=== PATIENT | female | born 2000 | race American Indian/Alaskan Native ===

== ENCOUNTER 2019-01-14 01:01 | Emergency (ER) | payer OTHER ==
[2019-01-14 01:13] VITALS: BP 124/63
[2019-01-14] MEDS ORDERED: ZOFRAN IV ONE (01:52)
[2019-01-14] MEDS ORDERED: NACL 0.9% 1000 ML 1,000 ML IV ONE (01:52)
[2019-01-14 02:25] LABS: Basophils % (Auto) 0.6 % (0.0-1.8); Eosinophils # (Auto) 0.1 K/mm3 (0.0-0.4); Eosinophils % (Auto) 0.8 % (0.0-4.3); Hemoglobin 6.2 gm/dl (10.1-14.3); Lymphocytes # (Auto) 2.5 K/mm3 (1.2-5.4); Lymphocytes % (Auto) 32.6 % (13.4-35.0); Mean Corpuscular HGB Conc 33 % (30-34); Mean Corpuscular Volume 90 fl (79-97); Monocytes # (Auto) 0.7 K/mm3 (0.0-0.8); Monocytes % (Auto) 9.3 % (0.0-7.3); Red Blood Count 2.06 M/mm3 (3.65-5.03); Red Cell Distribution Width 12.7 % (13.2-15.2)
--- NOTE | 2019-01-14 02:28 | Emergency Department Report ---
ED Female HPI - General Chief complaint: Vaginal Bleeding Stated complaint: NAUSEAU PERIOD PAIN Time Seen by Provider: 01/14/19 01:47 Source: patient Mode of arrival: Ambulatory Limitations: No Limitations - History of Present Illness Initial comments: pt is a 18 y/o aaf with hx of AUB and anemia, who presents for vaginal bleeding x 2 weeks now with nausea and dizziness for last 2 days , there is associated cramping using 2-3 pads daily. this is a chronic problem for last 3 yrs. pt denies hx of fibroids or ovarian cyst. MD Complaint: vaginal bleeding Onset/Timin -: week(s) Location: suprapubic Radiation: suprapubic Severity: moderate Severity scale (0 -10): 4 Quality: cramping Consistency: constant Improves with: none Worsens with: none Are you Now?: No Last Menstrual Period: 11/28/18 EDC: 09/04/19 Associated Symptoms: vaginal bleeding - Related Data Sexually active: Yes : 0 Para: 0 A: 0 Previous Rx's Medication Instructions Recorded Last Taken Type Ferrous Sulfate [Ferrous Sulfate 324 mg PO TID #90 tablet. 01/14/19 Unknown Rx 324 MG] Sennosides Tab [Senokot] 8.6 mg PO BID #60 tablet 01/14/19 Unknown Rx medroxyPROGESTERone ACETATE 10 mg PO QDAY #10 tablet 01/14/19 Unknown Rx [Provera] Allergies Allergy/AdvReac Type Severity Reaction Status Date / Time No Known Allergies Allergy Unverified 01/14/19 01:14 ED Review of Systems ROS: Stated complaint: NAUSEAU PERIOD PAIN Other details as noted in HPI Constitutional: denies: chills, fever Eyes: denies: eye pain, eye discharge, vision change ENT: denies: ear pain, throat pain Respiratory: denies: cough, shortness of breath, wheezing Cardiovascular: denies: chest pain, palpitations Endocrine: no symptoms reported Gastrointestinal: abdominal pain (cramping ). denies: nausea, vomiting, diarrhea, constipation, hematemesis, melena, hematochezia Genitourinary: abnormal menses Musculoskeletal: denies: back pain, joint swelling, arthralgia Skin: denies: rash, lesions Neurological: as per HPI Psychiatric: denies: anxiety, depression Hematological/Lymphatic: denies: easy bleeding, easy bruising ED Past Medical Hx - Past Medical History Previous Medical History?: Yes Additional medical history: Anemia - Surgical History Past Surgical History?: No - Social History Smoking Status: Never Smoker Substance Use Type: None - Medications Home Medications: Home Medications Medication Instructions Recorded Confirmed Last Taken Type Ferrous Sulfate [Ferrous Sulfate 324 mg PO TID #90 tablet. 01/14/19 Unknown Rx 324 MG] Sennosides Tab [Senokot] 8.6 mg PO BID #60 tablet 01/14/19 Unknown Rx medroxyPROGESTERone ACETATE 10 mg PO QDAY #10 tablet 01/14/19 Unknown Rx [Provera] ED Physical Exam - General Limitations: No Limitations General appearance: alert, in no apparent distress - Head Head exam: Present: atraumatic, normocephalic - Eye Eye exam: Present: normal appearance, PERRL, EOMI Pupils: Present: normal accommodation - ENT ENT exam: Present: mucous membranes moist - Neck Neck exam: Present: normal inspection, tenderness, full ROM - Respiratory Respiratory exam: Present: normal lung sounds bilaterally. Absent: respiratory distress, wheezes, stridor, chest wall tenderness - Cardiovascular Cardiovascular Exam: Present: regular rate, normal rhythm, normal heart sounds. Absent: systolic murmur, diastolic murmur, rubs, gallop - GI/Abdominal GI/Abdominal exam: Present: soft, normal bowel sounds. Absent: distended, tenderness, guarding, rebound, rigid, bruit, hernia - Rectal Rectal exam: Present: deferred - Extremities Exam Extremities exam: Present: normal inspection, full ROM, normal capillary refill. Absent: tenderness, pedal edema, joint swelling, calf tenderness - Back Exam Back exam: Present: normal inspection, full ROM. Absent: tenderness, CVA tenderness (R), CVA tenderness (L), muscle spasm, paraspinal tenderness, vertebral tenderness, rash noted - Neurological Exam Neurological exam: Present: alert, oriented X3, CN II-XII intact, normal gait, reflexes normal. Absent: motor sensory deficit - Psychiatric Psychiatric exam: Present: normal affect, normal mood - Skin Skin exam: Present: warm, dry, intact, normal color. Absent: rash ED Course Vital Signs 01/14/19 01:04 Temperature 99.2 F Pulse Rate 113 H Respiratory 19 Rate Blood Pressure 124/63 O2 Sat by Pulse 100 Oximetry ED Medical Decision Making - Lab Data Result diagrams: 01/14/19 02:16 Lab Results 01/14/19 01/14/19 01/14/19 Range/Units 02:16 02:16 02:16 WBC 7.7 (4.5-11.0) K/mm3 RBC 2.06 L (3.65-5.03) M/mm3 Hgb 6.2 L (10.1-14.3) gm/dl MCV 90 (79-97) fl MCH 30 (28-32) pg MCHC 33 (30-34) % RDW 12.7 L (13.2-15.2) % Lymph % (Auto) 32.6 (13.4-35.0) % [place] % (Auto) 9.3 H (0.0-7.3) % Eos % (Auto) 0.8 (0.0-4.3) % Baso % (Auto) 0.6 (0.0-1.8) % Lymph # 2.5 (1.2-5.4) K/mm3 [place] # 0.7 (0.0-0.8) K/mm3 Eos # 0.1 (0.0-0.4) K/mm3 Baso # 0.0 (0.0-0.1) K/mm3 Seg Neutrophils % 56.7 (40.0-70.0) % Seg Neutrophils # 4.4 (1.8-7.7) K/mm3 Sodium 139 (137-145) mmol/L Potassium 3.5 L (3.6-5.0) mmol/L Chloride 104.0 (98-107) mmol/L Carbon Dioxide 23 (22-30) mmol/L Anion Gap 16 mmol/L BUN 10 (7-17) mg/dL Creatinine 0.5 L (0.7-1.2) mg/dL Estimated GFR > 60 ml/min BUN/Creatinine Ratio 20 % Glucose 99 (65-100) mg/dL Calcium 8.7 (8.4-10.2) mg/dL HCG, Qual Negative (Negative) - Medical Decision Making pt now advises that she want to signout AMA does not want blood transfusion, or admission, advises that she will follow up with OBGYN tomorrow, pt is currently a/o x 3 demonstrates decisions making capacity, I have given her the opportunity to ask and I have answer all questions to her satisfication include anemia of chronic ,disease, continuing her Fe therapy as prescribed by her doctor, and symptomatic anemia, pt verbalized understanding of same and still whishes to sign out AMA , pt depart ED at this time in undetermined condition, pt is currently a/o x 3 ambulatory with steady gait and with nad Critical care attestation.: If time is entered above; I have spent that time in minutes in the direct care of this critically ill patient, excluding procedure time. ED Disposition Clinical Impression: Abnormal uterine bleeding (AUB) Anemia Qualifiers: Anemia type: unspecified type Qualified Code(s): D64.9 - Anemia, unspecified Disposition: LEFT AGAINST MED ADVICE Is pt being admited?: No Does the pt Need Aspirin: No Condition: Stable Instructions: Anemia (ED), Iron Deficiency Anemia (ED) Prescriptions: Ferrous Sulfate [Ferrous Sulfate 324 MG] 324 mg PO TID #90 tablet. medroxyPROGESTERone ACETATE [Provera] 10 mg PO QDAY #10 tablet Sennosides Tab [Senokot] 8.6 mg PO BID #60 tablet Referrals: GÓMEZ RAMIREZ MD [Staff Physician] - 3-5 Days Forms: AMA Form Time of Disposition: 02:53
[2019-01-14] MEDS ORDERED: ZOFRAN ODT PO ONE (02:34)
[2019-01-14 02:45] LABS: BUN/Creatinine Ratio 20; Blood Urea Nitrogen 10 mg/dL (7-17); Calcium 8.7 mg/dL (8.4-10.2); Hemolysis Index 10
[2019-01-14 02:57] LABS: Hematocrit 18.5 % (30.3-42.9); Platelet Count 137 K/mm3 (140-440)
== END 2019-01-14 02:52 | disposition left against medical advice (07) ==
LOC: ED 01:01
DX: D64.9 Anemia, unspecified (principal); N93.8 Other specified abnormal uterine and vaginal bleeding
CPT/HCPCS: 36415; 80048; 84703; 85025; 99283; Q0162

== ENCOUNTER 2019-01-17 22:43 | Inpatient (IN) | payer OTHER ==
[2019-01-18 00:31] LABS: Basophils % (Auto) 0.3 % (0.0-1.8); Eosinophils % (Auto) 0.5 % (0.0-4.3); Hemoglobin 6.1 gm/dl (10.1-14.3); Lymphocytes # (Auto) 1.5 K/mm3 (1.2-5.4); Lymphocytes % (Auto) 19.7 % (13.4-35.0); Mean Corpuscular HGB Conc 33 % (30-34); Mean Corpuscular Volume 89 fl (79-97); Monocytes # (Auto) 0.5 K/mm3 (0.0-0.8); Monocytes % (Auto) 6.5 % (0.0-7.3); Platelet Count 433 K/mm3 (140-440); Red Blood Count 2.11 M/mm3 (3.65-5.03); Red Cell Distribution Width 13.7 % (13.2-15.2)
[2019-01-18 00:50] LABS: Alanine Aminotransferase 10 units/L (7-56); BUN/Creatinine Ratio 20; Blood Urea Nitrogen 10 mg/dL (7-17); Calcium 9.4 mg/dL (8.4-10.2); Hemolysis Index 10
[2019-01-18 01:31] LABS: Hematocrit 18.9 % (30.3-42.9)
[2019-01-18] MEDS ORDERED: NACL 0.9% 500 ML 500 ML IV ONE (02:16)
--- NOTE | 2019-01-18 02:19 | Emergency Department Report ---
HPI - General Chief Complaint: Dizziness Time Seen by Provider: 01/18/19 02:08 - HPI HPI: 18 year-old female presents to the emergency department with complaint of some dizziness, nausea and vomiting and some generalized weakness. The patient was here about 5 days ago with some similar complaints. She had a two-week history of some vaginal bleeding that was an atypical menstrual cycle for her. At that time she had some pelvic cramping but says that currently she denies any abdominal or pelvic pain and the bleeding has stopped. She was previously advised to receive a blood transfusion and admission but at that time she left AGAINST MEDICAL ADVICE as she was scared. The patient lives in [place] and has a flight home next week. She otherwise denies any past medical history. No previous history of any fibroids or ovarian cysts. ED Past Medical Hx - Past Medical History Previous Medical History?: Yes Additional medical history: Anemia - Surgical History Past Surgical History?: No - Social History Smoking Status: Never Smoker Substance Use Type: None - Medications Home Medications: Home Medications Medication Instructions Recorded Confirmed Last Taken Type Ferrous Sulfate [Ferrous Sulfate 324 mg PO TID #90 tablet. 01/14/19 Unknown Rx 324 MG] Sennosides Tab [Senokot] 8.6 mg PO BID #60 tablet 01/14/19 Unknown Rx medroxyPROGESTERone ACETATE 10 mg PO QDAY #10 tablet 01/14/19 Unknown Rx [Provera] ED Review of Systems ROS: Stated complaint: DIZZINESS Other details as noted in HPI Comment: All other systems reviewed and negative Constitutional: denies: chills, fever Eyes: denies: eye pain, vision change ENT: denies: ear pain, throat pain Respiratory: denies: cough, shortness of breath Cardiovascular: denies: chest pain, palpitations Gastrointestinal: nausea, vomiting Genitourinary: abnormal menses. denies: dysuria Musculoskeletal: denies: back pain, arthralgia Skin: denies: rash, lesions Neurological: denies: headache, weakness Physical Exam - Physical Exam Vital Signs: Vital Signs 01/17/19 22:47 Temperature 98.0 F Pulse Rate 122 H Respiratory 20 Rate Blood Pressure 117/70 O2 Sat by Pulse 100 Oximetry Physical Exam: GENERAL: The patient is well-developed well-nourished. HENT: Normocephalic. Atraumatic. Patient has moist mucous membranes. EYES: Extraocular motions are intact. Pupils equal reactive to light bilaterally. Pale conjunctiva. NECK: Supple. Trachea is midline. CHEST/LUNGS: Clear to auscultation. There is no respiratory distress noted. HEART/CARDIOVASCULAR: Regular. There is mild to moderate tachycardia. There is no murmur. ABDOMEN: Abdomen is soft, nontender. Patient has normal bowel sounds. There is no abdominal distention. SKIN: Skin is warm and dry. NEURO: The patient is awake, alert, and oriented. The patient is cooperative. The patient has no focal neurologic deficits. The patient has normal speech. MUSCULOSKELETAL: There is no tenderness or deformity. There is no evidence of acute injury. ED Course Vital Signs 01/17/19 22:47 Temperature 98.0 F Pulse Rate 122 H Respiratory 20 Rate Blood Pressure 117/70 O2 Sat by Pulse 100 Oximetry - Consultations Consultation #1: 01/18/19 04:46 I spoke with the [facility] on-call, Dr. Sarita Rodriguez, who has graciously agreed to admit the patient to her service for the blood transfusions and further evaluation of the dysfunctional uterine bleeding. She has allowed for emergent first replaced and has requested an ultrasound be done to evaluate the abnormal bleeding and anemia. ED Medical Decision Making - Lab Data Result diagrams: 01/18/19 00:10 01/18/19 00:10 - Radiology Data Radiology results: report reviewed ULTRASOUND PELVIS INDICATION / CLINICAL INFORMATION: dysfunctional uterine bleeding. TECHNIQUE: Transabdominal. Transvaginal Duplex Color Doppler used: Yes. COMPARISON: None available FINDINGS: UTERUS: Present. - Appearance (if present): The uterus has a normal size and appearance. The uterus is slightly retroflexed.. No focal uterine mass. - Size in cm (if present): 8.1 x 4.2 x 5.6 cm.. - Endometrial Complex (if present): No significant abnormality.. Thickness in cm (if measured) = 12 mm - Mass lesions: None. - Additional findings: None. RIGHT ADNEXA: No significant ovarian cyst or mass. Normal color Doppler blood flow. Normal antral follicles are seen throughout the right ovary. There is a 1.0 cm dominant follicle present. LEFT ADNEXA: No significant ovarian cyst or mass. Normal color Doppler blood flow. Normal antral follicles are seen within the left ovary. There is a dominant 1.3 cm follicle noted. FREE FLUID: Trace free fluid noted in the region of the right ovary.. ADDITIONAL FINDINGS: None. IMPRESSION: 1. Endometrial thickness measures 12 mm. This can be a normal thickness in a menstruating female. 2. The uterus and both ovaries have a normal sonographic appearance. 3. Trace free fluid in the right adnexa. - Medical Decision Making Patient presents to the emergency department with what appears to be some symptomatic anemia with a hemoglobin of 6.1. This time the patient has agreed for blood transfusion and admission. 2 units of packed red blood cells have bee n ordered for transfusion. An ultrasound was done that does not show any acute process or etiology of the patient's dysfunctional uterine bleeding. The patient has been accepted for admission to the [facility] service of Dr. Sarita Rodriguez. - Differential Diagnosis fibroids, malignancy, dysfunctional uterine bleeding, iron deficiency Critical Care Time: Yes Critical care time in (mins) excluding proc time.: 35 Critical care attestation.: If time is entered above; I have spent that time in minutes in the direct care of this critically ill patient, excluding procedure time. Critical care time was spent on this patient and during her initial evaluation, multiple re- evaluations, ordering an interpretation of labs and imaging, ordering of blood for transfusion and discussion with the [facility] service. Critical Care Time: 35 minutes ED Disposition Clinical Impression: Abnormal uterine bleeding (AUB), Anemia requiring transfusions Anemia Qualifiers: Anemia type: unspecified type Qualified Code(s): D64.9 - Anemia, unspecified Disposition: 09 OP ADMIT IP TO THIS HOSP Is pt being admited?: Yes Condition: Fair Time of Disposition: 03:33
--- NOTE | 2019-01-18 04:23 | Ultrasound Report ---
ULTRASOUND PELVIS INDICATION / CLINICAL INFORMATION: dysfunctional uterine bleeding. TECHNIQUE: Transabdominal. Transvaginal Duplex Color Doppler used: Yes. COMPARISON: None available FINDINGS: UTERUS: Present. - Appearance (if present): The uterus has a normal size and appearance. The uterus is slightly retrof lexed.. No focal uterine mass. - Size in cm (if present): 8.1 x 4.2 x 5.6 cm.. - Endometrial Complex (if present): No significant abnormality.. Thickness in cm (if measured) = 12 m m - Mass lesions: None. - Additional findings: None. RIGHT ADNEXA: No significant ovarian cyst or mass. Normal color Doppler blood flow. Normal antral fol licles are seen throughout the right ovary. There is a 1.0 cm dominant follicle present. LEFT ADNEXA: No significant ovarian cyst or mass. Normal color Doppler blood flow. Normal antral foll icles are seen within the left ovary. There is a dominant 1.3 cm follicle noted. FREE FLUID: Trace free fluid noted in the region of the right ovary.. ADDITIONAL FINDINGS: None. IMPRESSION: 1. Endometrial thickness measures 12 mm. This can be a normal thickness in a menstruating female. 2. The uterus and both ovaries have a normal sonographic appearance. 3. Trace free fluid in the right adnexa. Signer Name: Mara Hauser MD Signed: 01/18/2019 3:18 AM Workstation Name: [id number]
--- NOTE | 2019-01-18 04:49 | Ultrasound Report ---
Please see pelvic ultrasound report for combined report of both the transabdominal and transvaginal s tudies. Signer Name: Mara Hauser MD Signed: 01/18/2019 3:45 AM Workstation Name: [email or web address]
[2019-01-18] MEDS ORDERED: TYLENOL PO ONE (06:35)
[2019-01-18] MEDS ORDERED: BENADRYL PO NR (07:00)
[2019-01-18] MEDS ORDERED: NACL 0.9% 500 ML 500 ML IV NR (08:00)
--- NOTE | 2019-01-18 08:24 | History and Physical Report ---
History of Present Illness Date of examination: 01/18/19 Date of admission: 01/18/19 03:34 Chief complaint: lightheadedness, dizzy, nausea and vomiting History of present illness: This is a 18 yo G0 LMP 3 weeks ago. She presented to ER several days ago with similar complaints. She states that she has been bleeding for 2 weeks. She declined [facility] offer of admission for blood transfusion. She reports dizziness, lightheadedness and n/v. Past History Past Medical History: no pertinent history Past Surgical History: no surgical history Family/Genetic History: none Social history: single. denies: smoking, alcohol abuse, prescription drug abuse Medications and Allergies Allergies Allergy/AdvReac Type Severity Reaction Status Date / Time No Known Allergies Allergy Unverified 01/14/19 01:14 Home Medications Medication Instructions Recorded Confirmed Last Taken Type Ferrous Sulfate [Ferrous Sulfate 324 mg PO TID #90 tablet. 01/14/19 01/18/19 01/17/19 18:00 Rx 324 MG] Sennosides Tab [Senokot] 8.6 mg PO BID #60 tablet 01/14/19 01/18/19 01/17/19 13:00 Rx medroxyPROGESTERone ACETATE 10 mg PO QDAY #10 tablet 01/14/19 01/18/19 01/17/19 18:00 Rx [Provera] Active Meds: Active Medications Diphenhydramine HCl (Benadryl) 50 mg PO ONCE NR Stop: 01/18/19 23:45 Last Admin: 01/18/19 07:26 Dose: 50 mg Documented by: Sodium Chloride (Nacl 0.9% 500 Ml) 500 mls @ 0 mls/hr IV ONCE NR Stop: 01/18/19 10:00 Review of Systems All systems: negative Gastrointestinal: nausea, vomiting Neurological: weakness - Vital Signs Vital signs: Vital Signs Temp Pulse Resp BP Pulse Ox 98.0 F 122 H 20 117/70 100 01/17/19 22:47 01/17/19 22:47 01/17/19 22:47 01/17/19 22:47 01/17/19 22:47 Temp Pulse Resp BP Pulse Ox 99.3 F 110 H 18 108/57 100 01/18/19 08:16 01/18/19 08:16 01/18/19 08:16 01/18/19 08:16 01/18/19 08:16 - Physical Exam Breasts: Positive: normal Cardiovascular: Regular rate, Normal S1 Lungs: Positive: Clear to auscultation, Normal air movement Abdomen: Positive: normal appearance, soft, normal bowel sounds. Negative: distention, tenderness, guarding Genitourinary (Female): Positive: normal external genitalia, normal perenium Vagina: Positive: normal moisture Uterus: Positive: normal size Anus/Rectum: Positive: normal perianal skin Extremities: Positive: normal Deep Tendon Reflex Grade: Normal +2 Results Result Diagrams: 01/18/19 00:10 01/18/19 00:10 Abnormal lab results 01/18/19 01/18/19 01/18/19 Range/Units 00:10 00:10 03:00 RBC 2.11 L (3.65-5.03) M/mm3 Hgb 6.1 L (10.1-14.3) gm/dl Hct 18.9 L* (30.3-42.9) % Seg Neutrophils % 73.0 H (40.0-70.0) % Chloride 107.8 H (98-107) mmol/L Carbon Dioxide 21 L (22-30) mmol/L Creatinine 0.5 L (0.7-1.2) mg/dL Lipase 11 L (13-60) units/L Crossmatch See Detail All other labs normal. Assessment and Plan A/P Dysfunctional uterine bleeding transfuse 2 U prbc check CBC 4 hr post transfusion pad count consider depoprovera vs provera for bleeding. US normal trace of fluid in [place] sac on right ovary close monitor of vs consider d/c home today or tomorrow after transfusion
[2019-01-18 22:01] LABS: Basophils % (Auto) 0.2 % (0.0-1.8); Eosinophils % (Auto) 0.5 % (0.0-4.3); Hematocrit 27.8 % (30.3-42.9); Hemoglobin 9.4 gm/dl (10.1-14.3); Lymphocytes # (Auto) 0.6 K/mm3 (1.2-5.4); Lymphocytes % (Auto) 7.1 % (13.4-35.0); Mean Corpuscular HGB Conc 34 % (30-34); Mean Corpuscular Volume 88 fl (79-97); Monocytes # (Auto) 0.5 K/mm3 (0.0-0.8); Monocytes % (Auto) 6.2 % (0.0-7.3); Platelet Count 371 K/mm3 (140-440); Red Blood Count 3.18 M/mm3 (3.65-5.03); Red Cell Distribution Width 13.2 % (13.2-15.2)
[2019-01-18 23:09] LABS: Bilirubin,Urine NEG (Negative); Blood,Urine MOD (Negative); Color,Urine Yellow (Yellow); Mucus,Urine 1+ /HPF; Protein,Urine <15 mg/dL mg/dL (Negative); Urobilinogen,Urine < 2.0 mg/dL (<2.0); WBC,Urine < 1.0 /HPF (0.0-6.0)
[2019-01-18] MEDS ORDERED: GENTAMICIN IV SCH (23:45)
[2019-01-18] MEDS ORDERED: NACL 0.9% IV SCH (23:45)
[2019-01-19] MEDS ORDERED: NACL 0.9% 500 ML 500 ML ONE (00:35)
[2019-01-19] MEDS: TYLENOL PO PRN ×3 (00:50→21:53)
[2019-01-19] MEDS: AMPICILLIN/NS 2 GM/100 ML 2 GM/100 ML BAG IV SCH ×5 (00:52→23:00)
[2019-01-19] MEDS: GENTAMICIN/NS 80 MG/100 ML 100 ML IV SCH ×3 (00:52→16:02)
[2019-01-19] MEDS: CLEOCIN 900 MG/50 mL 900 MG/50 ML BAG IV SCH ×3 (03:42→18:36)
--- NOTE | 2019-01-19 13:19 | Progress Note ---
Assessment and Plan - Patient Problems (1) Abnormal uterine bleeding (AUB) Current Visit: Yes Status: Acute Plan to address problem: will discharge home once patient is 24hours afebrile remains clinically stable Subjective - Subjective Date of service: 01/19/19 Interval history: Patient reports feeling better after receiving her transfusion. She is currently not receiving contraception. Discussed the use of depoprovera to control abnormal bleeding. Patient spiked a temp around midnight. Currently on antibiotics. Patient reports: appetite normal, voiding normally, pain well controlled Objective - Vital Signs Latest vital signs: Vital Signs Temp Pulse Resp Resp BP BP Pulse Ox 01/19/19 07:45 99.3 F 94 H 14 102/60 96 01/19/19 04:17 98.5 F 18 98/62 01/19/19 04:15 98 H 100 01/19/19 02:00 99.8 F H 01/19/19 01:50 18 01/19/19 00:50 18 01/18/19 23:15 102.3 F H 117 H 18 114/63 100 01/18/19 22:00 100.3 F H 01/18/19 20:00 18 01/18/19 19:27 100.3 F H 105 H 20 108/62 100 01/18/19 14:56 99.2 F 100 H 18 110/63 100 01/18/19 14:26 98.5 F 99 H 18 123/71 100 01/18/19 13:56 99.5 F 94 H 18 122/65 100 01/18/19 13:26 98.9 F 93 H 18 108/67 100 Intake and Output 01/18/19 01/19/19 01/19/19 22:59 06:59 14:59 Intake Total 120 830 120 Output Total 200 1 Balance -80 829 120 Intake: IV 350 AMPICILLIN/NS 2 GM/100 ML 200 2 gm In 100 ml @ 100 mls /hr IV Q6HR CEE Rx#: [id number] CLEOCIN 900 MG/50 mL 900 50 mg In 50 ml @ 100 mls/hr IV Q8H CEE Rx#:[id number] Gentamicin/Ns 80 mg/100 100 ml 100 ml @ 200 mls/hr IV Q8H CEE Rx#:[id number] Oral 240 120 Intake, Free Water 120 240 Output: Urine 200 Void 200 Pad Count 1 Other: Total, Intake Amount 240 120 Total, Output Amount 200 Voiding Method Toilet Toilet # Voids Void 2 1 # Bowel Movements 1 Weight 57.238 kg - Exam Abdomen: Present: normal appearance, soft - Labs Labs: Abnormal lab results 01/18/19 01/18/19 Range/Units 03:00 21:34 RBC 3.18 L (3.65-5.03) M/mm3 Hgb 9.4 L D (10.1-14.3) gm/dl Hct 27.8 L D (30.3-42.9) % Lymph % (Auto) 7.1 L (13.4-35.0) % Lymph # 0.6 L (1.2-5.4) K/mm3 Seg Neutrophils % 86.0 H (40.0-70.0) % Crossmatch See Detail
[2019-01-20] MEDS: GENTAMICIN/NS 80 MG/100 ML 100 ML IV SCH
[2019-01-20] MEDS: CLEOCIN 900 MG/50 mL 900 MG/50 ML BAG IV SCH (02:30)
[2019-01-20] MEDS: AMPICILLIN/NS 2 GM/100 ML 2 GM/100 ML BAG IV SCH (05:38)
[2019-01-20] MEDS: TYLENOL PO PRN (05:44)
--- NOTE | 2019-01-20 08:40 | Progress Note ---
Assessment and Plan - Patient Problems (1) Abnormal uterine bleeding (AUB) Current Visit: Yes Status: Acute Plan to address problem: administer depoprovera discharge home Subjective - Subjective Date of service: 01/20/19 Interval history: The patient has decided to receive depoprovera to assist with her AUB. She is without complaints today. Patient reports: appetite normal, voiding normally, pain well controlled Objective - Vital Signs Latest vital signs: Vital Signs Temp Pulse Pulse Resp BP Pulse Ox 01/20/19 08:00 74 16 01/20/19 04:26 98.2 F 81 20 104/56 100 01/19/19 23:33 99.1 F 85 20 99/54 100 01/19/19 20:28 98.4 F 84 20 99/53 100 01/19/19 20:00 70 16 01/19/19 16:18 99.8 F H 92 H 16 107/59 100 01/19/19 12:18 98.2 F 91 H 14 94/56 95 Intake and Output 01/19/19 01/20/19 01/20/19 22:59 06:59 14:59 Intake Total 730 220 Output Total 1 Balance 729 220 Intake: IV 250 100 AMPICILLIN/NS 2 GM/100 ML 100 100 2 gm In 100 ml @ 100 mls /hr IV Q6HR CEE Rx#: [id number] CLEOCIN 900 MG/50 mL 900 50 mg In 50 ml @ 100 mls/hr IV Q8H CEE Rx#:[id number] Gentamicin/Ns 80 mg/100 100 ml 100 ml @ 200 mls/hr IV Q8H CEE Rx#:[id number] Oral 480 120 Output: Pad Count 1 Other: Total, Intake Amount 480 120 Voiding Method Toilet Toilet # Voids Void 1 2 # Bowel Movements 0 Weight 58.542 kg - Exam Abdomen: Present: normal appearance
--- NOTE | 2019-01-20 08:44 | Discharge Summary ---
Providers - Providers Date of Admission: 01/18/19 03:34 Date of discharge: 01/20/19 Attending physician: ELLIE GARCIA MD [facility] Reason for admission: vaginal bleeding Discharge diagnosis: other (Dysfunctional uterine bleeding) Hospital course: Patient was admitted from the ED for anemia and DUB. The patient was admitted for transfusion of blood products. Pelvic ultrasound was unremarkable. Patient offered depoprovera for management of abnormal bleeding. Condition at discharge: Good Disposition: DC-01 TO HOME OR SELFCARE - Discharge Diagnoses (1) Abnormal uterine bleeding (AUB) Status: Acute Plan - Provider Discharge Summary Diet: routine Instructions: routine Additional instructions: [] Smoking cessation referral if applicable(refer to patient education folder for contact #) [] Refer to [facility] Booklet Call your doctor immediately for: * Fever > 100.5 * Heavy vaginal bleeding ( >1 pad per hour) * Severe persistent headache * Shortness of breath * Reddened, hot, painful area to leg or breast * followup with provider in 2-4 weeks - Follow up plan
[2019-01-20] MEDS ORDERED: DEPO-PROVERA (CONTRACEPTION) IM NR (09:00)
[2019-01-20 09:15] VITALS: BP 100/51
== END 2019-01-20 10:55 | disposition home or self-care (01) | DRG 812 ==
LOC: ED 22:43 → OB 01-18 03:34
PROVIDERS: ADMIT Obstetrics & Gynecology; ATTEND Obstetrics & Gynecology
PROC: 30233N1 Transfusion of Nonautologous Red Blood Cells into Peripheral Vein, Percutaneous Approach (ICD-10-PCS; principal; 2019-01-18)
DX: D64.9 Anemia, unspecified (principal); N93.8 Other specified abnormal uterine and vaginal bleeding
CPT/HCPCS: 36415; 36430; 76830; 80053; 81001; 83690; 84703; 85025; 86850; 86900; 86901; 86920; 87040; 93975; G0378; J0290; J1050; J1580; J7040; P9016